=== PATIENT | female | born 1960 | race Caucasian/White ===

== ENCOUNTER → 2017-12-14 | Outpatient (CLI) | payer BC, MEDICARE ==
[~2017-12-14] MED LIST: ABILIFY10 MG PO; ANTIBIOTIC; BUSPAR10 MG PO; CARDIZEM CD120 MG; CIPRO; CLONAZEPAM1 MG PO; CYMBALTA; CYMBALTA30 MG PO; CYMBALTA60 M1 PO; DARVOCET N 1001 TAB PO; ESIDREX,ORETIC,25 MG PO; FOLIC ACID; Fetzima PO; HYDR25T PO; HYDROCODONE BIT1 T11 PO; KLONOPIN0.5 MG PO; LOPRESSOR50 MG PO; Lopressor25 MG PO; METOPROLOL25 MG PO; MOTRIN800 MG PO; PRAVACHOL40 MG PO; PROTONIX40 MG PO; SINGULAIR10 MG PO; VICODIN 5/500 505 MG PO; Wellbutrin Sr100 MG PO; XANAX0.5 MG PO; ZOLOFT100 MG PO
== END ==
LOC: RAD 16:32
DX: R09.1 Pleurisy (principal); I10 Essential (primary) hypertension

== ENCOUNTER → 2019-10-30 | Outpatient (CLI) | payer OTHER, MEDICARE | END | disposition home or self-care (01) | LOC: RAD 16:23 | DX: R05 Cough (principal); I10 Essential (primary) hypertension ==

== ENCOUNTER 2020-01-09 15:52 | Inpatient (IN) | payer OTHER, MEDICARE ==
[~2020-01-09] VITALS: Ht 157.5 cm; Wt 74.4 kg
[2020-01-09 16:00] VITALS: BP 137/98
--- NOTE | 2020-01-09 16:00 | NUR ---
A 59, admitted to , under the services of ROLDAN Calzada MD with a diagnosis of TACHYCARDIA. Chief complaint is FAILED OUTPT TREATMENT FOR SINUS AND CHEST CONGESTION. Patient arrived via wheel chair from [place]. Monitor applied. Initial assessment completed. Vital signs taken and recorded. ROLDAN CALZADA MD notified of admission to the unit. Orders received. See assessment for past medical history, medications and allergies. Patient and/or family oriented to unit. [facility] reviewed. Clothing/patient valuable form completed. DELEON
[2020-01-09] MEDS ORDERED: KLONOPIN1 M1 PO (16:52)
[2020-01-09] MEDS ORDERED: FETZIMA80 M1 PO (16:53)
[2020-01-09] MEDS ORDERED: PROTONIX40 MG PO (16:56)
[2020-01-09] MEDS ORDERED: ASPIRIN81 M1 PO (16:56)
[2020-01-09] MEDS ORDERED: TRICOR145 M1 PO (16:57)
[2020-01-09 18:03] LABS: BASO % 0.1 % (0.0-1.0); EOS % 0.4 % (1.0-4.0); HEMATOCRIT 37.8 % (37.0-47.0); HEMOGLOBIN 12.4 g/dl (12.0-16.0); LYMPH # 2.4 10*3/uL (1.3-4.4); LYMPH % 28.7 % (27.0-41.0); MEAN CELL VOLUME 88.9 fl (81.0-99.0); MEAN CORPUSCULAR HGB 29.2 pg (27.0-31.0); MEAN CORPUSCULAR HGB CONC 32.8 g/dl (33.0-37.0); MONO # 0.6 10*3/uL (0.1-1.0); MONO % 7.1 % (3.0-9.0); NEUT # 5.2 10*3/uL (2.3-7.9); NEUT % 63.2 % (47.0-73.0); PLATELET COUNT AUTOMATED 293 10*3/uL (130-400); RED BLOOD COUNT 4.25 10*6/uL (4.10-5.10); RED CELL DISTRI WIDTH 13.3 % (0-14.5); WHITE BLOOD COUNT 8.3 10*3/uL (4.8-10.8)
[2020-01-09 18:31] LABS: ALBUMIN 3.8 gm/dl (3.1-4.5); ALKALINE PHOSPHATASE 50 U/L (45-117); BUN 21 mg/dl (7-24); CHLORIDE 107 mmol/L (98-107); CREATININE 1.11 mg/dL (0.55-1.02); SGOT/AST 28 IU/L (3-35); SGPT/ALT 24 U/L (12-78); SODIUM 140 mmol/L (136-145); TOTAL PROTEIN 7.3 gm/dL (6.4-8.2)
[2020-01-09 18:32] LABS: TROPONIN I < 0.015 ng/ml (<0.045)
--- NOTE | 2020-01-09 19:16 | NUR ---
NOTIFIED OF CONSULT NNO
[2020-01-09 20:00] VITALS: BP 146/75
--- NOTE | 2020-01-09 20:00 | NUR ---
PATIENT IN RESTING IN BED. VOICES NO COMPLAINTS AT THIS TIME. DOES STATE SHE OCCASIONALLY FEELS HER HEART RACE. HR IN THE 80S RIGHT NOW. VITALS WNL. WILL CONTINUE TO MONITOR
[2020-01-09 23:54] VITALS: BP 126/62
--- NOTE | 2020-01-10 04:45 | NUR ---
PATIENT RESTING IN BED, NO SIGNS OF DISTRESS. RESPIRATIONS EASY, NON LABORED. WILL CONTINUE TO MONITOR.
[2020-01-10 08:00] VITALS: BP 121/86
--- NOTE | 2020-01-10 08:22 | NUR ---
INFORMED CONSENT OBTAINED FOR LEXISCAN NUCLEAR STRESS TEST WITH DR. LACKEY. RESTING EKG NSR WITH A RESTING HR OF 75 WITH BP OF 104/78. LUNGS DIMINISHED BS WITH SPO2 OF 100% ON ROOM AIR. PT COMPLETED A 1:00 LEXISCAN PROTOCOL RECEIVING LEXISCAN 0.4 MG IV OVER 10 SECONDS. HAD C/O CHEST DISCOMFORT THAT WAS RELIEVED IN RECOVERY. HAD NONDIAGNOSTIC ST CHANGES. HAD A PEAK HR OF 106 WITH BP OF 118/74. LAST RECOVERY HR OF 107 WITH BP OF 126/70. AWAITING SCANNING IN STABLE CONDITION.
--- NOTE | 2020-01-10 09:00 | NUR ---
Car Electronics Installer in to see patient. She is currently not in her room. Will follow up at a later time.
--- NOTE | 2020-01-10 09:25 | NUR ---
Returned to room from Cardiac Rehab. LV infusing, site clear. Resting in bed at present. Ada BARRY
[2020-01-10 12:00] VITALS: BP 154/60
--- NOTE | 2020-01-10 12:17 | NUR ---
Cerner Analyst in to talk to patient. Patient states lives at home with her . There are 12 steps in the home. Physician: Dr. Lynette Gaffney [facility]: [facility] Home health services: none Patient's level of ADLs: INDEPENDENT Patient has working utilities: yes DME: none Follow-up physician's appointment after d/c: she prefers to make her own follow up appt after discharge Does patient want to access PORTAL?: no Discharge plan discussed with patient. She lives at home with her . She is independent in her ADLs and ambulation. Discussed home health care services and she denies any home needs at this time. When medically stable she will be discharged to home. She states her will provide transportation on discharge. EILEEN JOHN
--- NOTE | 2020-01-10 13:54 | NUR ---
NORCO GIVEN FOR C/O GENERALIZED DISCOMFORT. WILL MONITOR.
--- NOTE | 2020-01-10 15:00 | NUR ---
ALYSSA EFFECTIVE PER PT.
[2020-01-10 16:00] VITALS: BP 120/66
--- NOTE | 2020-01-10 19:30 | NUR ---
PATIENT COMPLAINING HER IV IS BURNING AND SWELLING AROUND SITE. NEW IV STARTED IN RAC. PATIENT TOLERATED WELL. NS RUNNING @ 60ML/HR WILL CONTINUE TO MONITOR.
[2020-01-10 20:00] VITALS: BP 106/72
--- NOTE | 2020-01-10 20:00 | NUR ---
PATIENT AWAKE RESTING IN BED. VOICES NO COMPLAINTS AT THIS TIME. DENIES CP/SOB. RESPIRATIONS EASY,NON LABORED. IV FLUIDS INFUSING AT 60ML/HR. BED IN LOWEST POSITON. CALL LIGHT WITHIN REACH WILL CONTINUE TO MONITOR
[2020-01-11] VITALS: BP 114/53
[2020-01-11 06:38] LABS: BASO % 0.1 % (0.0-1.0); HEMATOCRIT 37.3 % (37.0-47.0); HEMOGLOBIN 12.3 g/dl (12.0-16.0); LYMPH # 1.2 10*3/uL (1.3-4.4); LYMPH % 10.3 % (27.0-41.0); MEAN CELL VOLUME 90.8 fl (81.0-99.0); MEAN CORPUSCULAR HGB 29.9 pg (27.0-31.0); MEAN PLATELET VOLUME 10.4 fl (9.6-12.3); MONO # 0.4 10*3/uL (0.1-1.0); MONO % 3.3 % (3.0-9.0); NEUT # 9.9 10*3/uL (2.3-7.9); NEUT % 85.8 % (47.0-73.0); PLATELET COUNT AUTOMATED 311 10*3/uL (130-400); RED BLOOD COUNT 4.11 10*6/uL (4.10-5.10); RED CELL DISTRI WIDTH 13.4 % (0-14.5); WHITE BLOOD COUNT 11.6 10*3/uL (4.8-10.8)
[2020-01-11 07:24] LABS: BUN 17 mg/dl (7-24); CHLORIDE 109 mmol/L (98-107); CREATININE 0.84 mg/dL (0.55-1.02); POTASSIUM 4.1 mmol/L (3.5-5.1); SODIUM 142 mmol/L (136-145)
[2020-01-11 08:00] VITALS: BP 118/58
--- NOTE | 2020-01-11 09:00 | NUR ---
Taxicab Starter in to see patient. No new needs or request at this time. She denies any home needs. When medically stable she will be discharged to home.
[2020-01-11 12:00] VITALS: BP 120/69
[2020-01-11 16:00] VITALS: BP 122/67
[2020-01-11 20:00] VITALS: BP 122/62
--- NOTE | 2020-01-11 22:13 | NUR ---
PATIENT RESTING IN BED. VOICES NO COMPLAINTS AT THIS TIME. RESPIRATIONS EASY, NON LABORED. NO SIGNS OF DISTRESS. VITALS WNL. HEPLOCKED RAC. BED IN LOWEST POSITION, CALL LIGHT WITHIN REACH. WILL CONTINUE TO MONITOR.
--- NOTE | 2020-01-11 22:20 | NUR ---
PATIENT WANTING FLU SHOT. NOTIFIED DR. ZIYAD RESENDIZ TO ORDER ONE.
[2020-01-12] VITALS: BP 126/74
--- NOTE | 2020-01-12 05:34 | NUR ---
PATIENT GIVEN FLU VACCINE IN LEFT DELTOID. TOLERATED WELL. WILL CONTINE TO MONITOR.
[2020-01-12 08:00] VITALS: BP 122/78
[2020-01-12] MEDS ORDERED: CEFUROXIME AXE250 MG PO (08:09)
[2020-01-12] MEDS ORDERED: QVAR REDIHALE10.6 GM INH (08:09)
[2020-01-12] MEDS ORDERED: MONTELUKAST SOD10 MG PO (08:09)
[2020-01-12] MEDS ORDERED: PROVENTIL HFA6.7 GM INH (08:09)
--- NOTE | 2020-01-12 10:41 | NUR ---
Discharge instructions reviewed with patient/family. Patient receptive and verbalizes understanding. Follow-up care arranged. Written instructions given to patient/family. VIANEY ROLON
[2020-01-15 02:10] LABS: ADENOVIRUS Negative (Negative); INFLUENZA A Negative (Negative); INFLUENZA B Negative (Negative); METAPNEUMOVIRUS Negative (Negative); PARAINFLUENZA 1 Negative (Negative); PARAINFLUENZA 2 Negative (Negative); PARAINFLUENZA 3 Negative (Negative); RHINOVIRUS Negative (Negative); RSV A Negative (Negative); RSV B Negative (Negative)
== END 2020-01-12 10:50 | disposition home or self-care (01) | DRG 202 ==
LOC: 4E 15:52
PROVIDERS: ADMIT Internal Medicine
PROC: 4A02XM4 Measurement of Cardiac Total Activity, External Approach (ICD-10-PCS; principal; 2020-01-09)
PROC: 3E073KZ Introduction of Other Diagnostic Substance into Coronary Artery, Percutaneous Approach (ICD-10-PCS; principal; 2020-01-09)
DX: J45.21 Mild intermittent asthma with (acute) exacerbation (principal); F32.2 Major depressive disorder, single episode, severe without psychotic features; N17.9 Acute kidney failure, unspecified; R07.89 Other chest pain; J20.9 Acute bronchitis, unspecified; I10 Essential (primary) hypertension; M79.7 Fibromyalgia; F41.0 Panic disorder [episodic paroxysmal anxiety]; G89.29 Other chronic pain; Z88.8 Allergy status to other drugs, medicaments and biological substances

== ENCOUNTER → 2020-11-27 | Outpatient (CLI) | payer OTHER, MEDICARE ==
[~2020-11-27] MED LIST changes: +ASPIRIN81 M1 PO; +CEFUROXIME AXE250 MG PO; +FETZIMA80 M1 PO; +KLONOPIN1 M1 PO; +MONTELUKAST SOD10 MG PO; +PROVENTIL HFA6.7 GM INH; +QVAR REDIHALE10.6 GM INH; +TRICOR145 M1 PO
== END | disposition home or self-care (01) ==
LOC: COVID19 12:07
PROVIDERS: ATTEND Internal Medicine
DX: Z20.828 Contact with and (suspected) exposure to other viral communicable diseases (principal); R05 Cough

== ENCOUNTER → 2021-12-28 | Outpatient (CLI) | payer OTHER, MEDICARE | LOC: US 09:30 | PROVIDERS: ATTEND Internal Medicine | DX: R74.8 Abnormal levels of other serum enzymes (principal); Z90.49 Acquired absence of other specified parts of digestive tract ==

== ENCOUNTER → 2022-09-24 | Outpatient (CLI) | payer MEDICARE | END | disposition home or self-care (01) | LOC: RAD 09:53 | PROVIDERS: ATTEND Internal Medicine | DX: M81.0 Age-related osteoporosis without current pathological fracture (principal); Z78.0 Asymptomatic menopausal state ==

== ENCOUNTER → 2022-11-29 | Outpatient (CLI) | payer MEDICARE ==
[2022-11-29 13:10] LABS: BASO % 0.3 % (0.0-1.0); EOS # 0.1 10*3/uL (0.0-0.4); EOS % 1.6 % (1.0-4.0); HEMATOCRIT 35.4 % (37.0-47.0); LYMPH # 1.1 10*3/uL (1.3-4.4); LYMPH % 30.2 % (27.0-41.0); MEAN CELL VOLUME 85.5 fl (81.0-99.0); MEAN CORPUSCULAR HGB CONC 33.9 g/dl (33.0-37.0); MEAN PLATELET VOLUME 10.9 fl (9.6-12.3); MONO # 0.3 10*3/uL (0.1-1.0); MONO % 7.9 % (3.0-9.0); NEUT # 2.2 10*3/uL (2.3-7.9); NEUT % 59.7 % (47.0-73.0); PLATELET COUNT AUTOMATED 187 10*3/uL (130-400); RED BLOOD COUNT 4.14 10*6/uL (4.10-5.10); RED CELL DISTRI WIDTH 13.8 % (0-14.5); WHITE BLOOD COUNT 3.7 10*3/uL (4.8-10.8)
[2022-11-29 13:41] LABS: ALKALINE PHOSPHATASE 57 U/L (46-116); BUN 13 mg/dl (9-23); CHLORIDE 106 mmol/L (98-107); CHOLESTEROL 150 mg/dL (<200); LDL CHOLESTEROL 78 mg/dL (9-159); POTASSIUM 3.7 mmol/L (3.4-5.1); SGPT/ALT 13 U/L (10-49); THYROID STIM HORMONE (HS) 1.455 uIU/ml (0.550-4.780); TOTAL PROTEIN 6.9 gm/dL (6.0-8.0); TRIGLYCERIDES 174 mg/dl (<150)
[2022-11-29 13:50] LABS: VITAMIN D, 25-HYDROXY 87.4 ng/mL (30-100)
== END | disposition home or self-care (01) ==
LOC: LAB 12:30
PROVIDERS: ATTEND Internal Medicine
DX: E78.2 Mixed hyperlipidemia (principal); E11.9 Type 2 diabetes mellitus without complications; E55.9 Vitamin D deficiency, unspecified; I10 Essential (primary) hypertension; Z13.0 Encounter for screening for diseases of the blood and blood-forming organs and certain disorders involving the immune mechanism; Z13.1 Encounter for screening for diabetes mellitus; Z13.220 Encounter for screening for lipoid disorders; Z13.21 Encounter for screening for nutritional disorder; Z13.228 Encounter for screening for other metabolic disorders; Z13.6 Encounter for screening for cardiovascular disorders; Z13.89 Encounter for screening for other disorder; Z13.9 Encounter for screening, unspecified

== ENCOUNTER → 2023-12-05 | Outpatient (CLI) | payer OTHER ==
[2023-12-05 10:08] LABS: EOS # 0.1 10*3/uL (0.0-0.4); EOS % 1.6 % (1.0-4.0); HEMATOCRIT 39.9 % (37.0-47.0); LYMPH # 1.5 10*3/uL (1.3-4.4); LYMPH % 38.3 % (27.0-41.0); MEAN CELL VOLUME 88.7 fl (81.0-99.0); MEAN CORPUSCULAR HGB 28.7 pg (27.0-31.0); MEAN CORPUSCULAR HGB CONC 32.3 g/dl (33.0-37.0); MEAN PLATELET VOLUME 10.6 fl (9.6-12.3); MONO # 0.3 10*3/uL (0.1-1.0); MONO % 7.6 % (3.0-9.0); NEUT % 52.2 % (47.0-73.0); PLATELET COUNT AUTOMATED 186 10*3/uL (130-400); WHITE BLOOD COUNT 3.8 10*3/uL (4.8-10.8)
[2023-12-06 15:07] LABS: t-TRANSGLUTAMINASE (tTG) IGA <2 U/mL (0-3); t-TRANSGLUTAMINASE (tTG) IgG 3 U/mL (0-5)
== END | disposition home or self-care (01) ==
LOC: LAB 09:39
PROVIDERS: ATTEND Physician Assistant
DX: R63.4 Abnormal weight loss (principal)

== ENCOUNTER → 2024-03-09 | Outpatient (CLI) | payer OTHER | END | disposition home or self-care (01) | LOC: RAD 14:18 | PROVIDERS: ATTEND Internal Medicine | DX: M25.542 Pain in joints of left hand (principal) ==

== ENCOUNTER → 2024-05-09 | Outpatient (CLI) | payer OTHER | END | disposition home or self-care (01) | LOC: US 09:00 → MRI 10:00 → US 10:14 | PROVIDERS: ATTEND Internal Medicine | DX: I65.23 Occlusion and stenosis of bilateral carotid arteries (principal); I10 Essential (primary) hypertension; G93.89 Other specified disorders of brain ==

== ENCOUNTER → 2024-05-18 | Outpatient (CLI) | payer OTHER | END | disposition home or self-care (01) | LOC: LAB 11:36 | PROVIDERS: ATTEND Internal Medicine | DX: Z01.812 Encounter for preprocedural laboratory examination (principal) ==

== ENCOUNTER → 2024-05-22 | Outpatient (CLI) | payer OTHER ==
[~2024-05-22] MED LIST changes: +IOHEXOL 350 MG/ML 100 ML VIAL IV ONE; +SODIUM CHLORIDE 0.9% 100 ML BAG IV ONE
== END | disposition home or self-care (01) ==
LOC: CT 00:45
PROVIDERS: ATTEND Internal Medicine
DX: I77.89 Other specified disorders of arteries and arterioles (principal); R42 Dizziness and giddiness; M47.812 Spondylosis without myelopathy or radiculopathy, cervical region